=== PATIENT | male | born 1945 | race Caucasian/White ===

== ENCOUNTER 2021-01-04 20:51 | Emergency (ER) | payer OTHER, SELFPAY ==
--- NOTE | ~2021-01-04 | XR_ITS ---
EXAMINATION: XR SOFT TISSUE NECK CLINICAL INDICATION: Food stock in the throat. COMPARISON: None TECHNIQUE: 2 views of the soft tissue neck were obtained. FINDINGS: The airway is widely patent. No soft tissue foreign body seen. There is moderate degenerative left C4-C5 facet joint arthropathy. The prevertebral soft tissues are normal. XR/XR soft tissue neck IMPRESSION: Repeat foreign body seen in the soft tissues of the neck..
[2021-01-04 21:02] VITALS: BP 196/87; PULSE 98; RESP 16; TEMP 36.5; O2SAT 98; BMI 32.3
[2021-01-04 21:49] VITALS: BP 156/82; PULSE 74; RESP 16; TEMP 36.6; O2SAT 98
--- NOTE | 2021-01-04 21:57 | ED.GENADULT ---
HPI - General Adult General Chief complaint: General Medical <Marta Daugherty NP - Last Filed: 01/05/21 00:33> Stated complaint: Trouble Swallowing <Marta Daugherty NP - Last Filed: 01/05/21 00:33> Time Seen by Provider: 01/04/21 21:43 <Marta Daugherty NP - Last Filed: 01/05/21 00:33> Source: patient <Marta Daugherty NP - Last Filed: 01/05/21 00:33> Mode of arrival: ambulatory <Marta Daugherty NP - Last Filed: 01/05/21 00:33> Limitations: no limitations <LOTTIE Oshea Last Filed: 01/05/21 00:33> History of Present Illness HPI narrative: 75-year-old male with a past medical history of esophageal stricture with food impaction in 2006 here with complaints of feeling like a piece of chicken is stuck in inability to swallow water since. Patient tells me that he ate some chicken about 3 hours ago and since then he has been unable to drink fluids. He tells me that he has no medical problems but has not seen a doctor in more than 10 years. He does smoke cigarettes daily and drinks alcohol daily. <LOTTIE Oshea Last Filed: 01/05/21 00:33> Related Data Allergies/adverse reactions: Allergies Allergy/AdvReac Type Severity Reaction Status Date / Time No Known Allergies Allergy Unverified 12/31/19 15:05 [No Known Allergies*] <Marta Daugherty NP - Last Filed: 01/05/21 00:33> Review of Systems Review of Systems: Yes all other systems are reviewed and are negative <LOTTIE Oshea Last Filed: 01/05/21 00:33> Constitutional: Constitutional: Reports no additional constitutional complaints, Denies body ache(s), Denies chills, Denies fever(s), Denies headache(s) and Denies weakness <LOTTIE Oshea Last Filed: 01/05/21 00:33> Eyes: Eyes: Reports no additional eye complaints and Denies change in vision <Marta Daugherty NP - Last Filed: 01/05/21 00:33> ENT: Reports system reviewed and no additional complaints, except as documented, Reports dysphagia, Denies dizziness, Denies headache(s), Denies nasal congestion, Denies nasal discharge and Denies neck pain <Marta Daugherty NP - Last Filed: 01/05/21 00:33> Cardiovascular: Cardiovascular: Reports no additional cardiovascular complaints, Denies chest pain, Denies leg edema and Denies dyspnea <Marta Daugherty NP - Last Filed: 01/05/21 00:33> Respiratory: Respiratory: Reports no additional respiratory complaints, Denies cough and Denies dyspnea <Marta Daugherty NP - Last Filed: 01/05/21 00:33> Gastrointestinal: Gastrointestinal: Reports no additional gastrointestinal complaints, Denies abdominal pain, Reports dysphagia, Denies diarrhea, Denies nausea and Denies vomiting <Marta Daugherty NP - Last Filed: 01/05/21 00:33> Genitourinary: Genitourinary: Denies urinary incontinence <Marta Daugherty NP - Last Filed: 01/05/21 00:33> Musculoskeletal: Musculoskeletal: Reports no additional musculoskeletal complaints, Denies back pain, Denies arthralgias, Denies joint swelling, Denies neck pain, Denies numbness and Denies tingling <Marta Daugherty NP - Last Filed: 01/05/21 00:33> Integumentary/Breasts: Skin/Breast: Reports system reviewed and no additional complaints, except as docu and Denies rash <Marta Daugherty NP - Last Filed: 01/05/21 00:33> Neurologic: Reports system reviewed and no additional complaints, except as documented, Denies Abnormal speech present, Denies dizziness, Denies headache(s), Denies numbness, Denies tingling and Denies weakness <Marta Daugherty NP - Last Filed: 01/05/21 00:33> PMF Past Medical History Attestation statement: The following information was validated with the patient. <LOTTIE Oshea Last Filed: 01/05/21 00:33> Source: old records reviewed and nursing notes reviewed <Marta Daugherty NP - Last Filed: 01/05/21 00:33> Social History Social History: Social History Alcohol intake: unknown Patient Tobacco Use Status: Tobacco use Unknown Use of substances other than those prescribed or required for medical reasons: Unknown Advance Directives: No Advance Directives Information Provided: Yes <Marta Daugherty NP - Last Filed: 01/05/21 00:33> Physical Exam Vital Signs: Vital Signs: Last Vital Signs Temp 97.8 F 01/04/21 21:49 Pulse 74 01/04/21 21:49 Resp 16 01/04/21 21:49 BP 156/82 H 01/04/21 21:49 Pulse Ox 98 01/04/21 21:49 Body Mass Index 32.3 <Marta Daugherty NP - Last Filed: 01/05/21 00:33> Vital Signs: Last Vital Signs Temp 97.8 F 01/04/21 21:49 Pulse 74 01/04/21 21:49 Resp 16 01/04/21 21:49 BP 156/82 H 01/04/21 21:49 Pulse Ox 98 01/04/21 21:49 Body Mass Index 32.3 <Feng Sharma MD - Last Filed: 01/04/21 22:05> Const: General: cooperative, healthy appearing, comfortable and no acute distress <Marta Daugherty NP - Last Filed: 01/05/21 00:33> Orientation/consciousness: patient oriented x3 <Marta Daugherty NP - Last Filed: 01/05/21 00:33> Limitations: no limitations <Marta Daugherty NP - Last Filed: 01/05/21 00:33> HENMT: Head: Yes normal to inspection <Marta Daugherty NP - Last Filed: 01/05/21 00:33> Ears: hearing grossly normal bilaterally <Marta Daugherty NP - Last Filed: 01/05/21 00:33> General nose exam: Normal external nose present <Marta Daugherty NP - Last Filed: 01/05/21 00:33> Face and sinus: Yes normal facial exam <Marta Daugherty NP - Last Filed: 01/05/21 00:33> Mouth: Normal oral and palatal mucosa present <Marta Daugherty NP - Last Filed: 01/05/21 00:33> Throat: Yes posterior oropharynx normal <Marta Daugherty NP - Last Filed: 01/05/21 00:33> Eyes: General: appearance normal, both eyes and all related structures <Marta Daugherty NP - Last Filed: 01/05/21 00:33> Pupils: Equal, round and reactive pupils present <Marta Daugherty NP - Last Filed: 01/05/21 00:33> Neck: Neck: Yes normal visual inspection <Marta Daugherty NP - Last Filed: 01/05/21 00:33> Chest: Chest palpation & inspection: normal inspection of the chest <LOTTIE Oshea Last Filed: 01/05/21 00:33> Resp: Effort & Inspection: normal respiratory effort <Marta Daugherty NP - Last Filed: 01/05/21 00:33> Auscultation: clear to auscultation bilaterally <Marta Daugherty NP - Last Filed: 01/05/21 00:33> Cardio: Rate: regular rate <Marta Daugherty NP - Last Filed: 01/05/21 00:33> Rhythm: regular rhythm <Marta Daugherty NP - Last Filed: 01/05/21 00:33> Peripheral pulses: Peripheral pulses 2+ throughout <Marta Daugherty NP - Last Filed: 01/05/21 00:33> GI: Inspection: Yes normal to inspection <LOTTIE Oshea Last Filed: 01/05/21 00:33> Palpation (GI): Soft to palpation and nontender <Marta Daugherty NP - Last Filed: 01/05/21 00:33> Auscultation: normal bowel sounds <Marta Daugherty NP - Last Filed: 01/05/21 00:33> Back/Spine/Pelvis: Thoracic/Lumbar Spine: thoracic and lumbar spine normal to inspection <Marta Daugherty NP - Last Filed: 01/05/21 00:33> Skin: General skin exam: no rashes or lesions noted <Marta Daugherty NP - Last Filed: 01/05/21 00:33> Neuro: General: patient oriented x3, no focal motor deficits and normal sensation to monofilament <Marta Daugheryt NP - Last Filed: 01/05/21 00:33> Cranial nerves: Yes Equal, round and reactive pupils present <Marta Daugherty NP - Last Filed: 01/05/21 00:33> Cognition (Neuro): normal cognition <Marta Daugherty NP - Last Filed: 01/05/21 00:33> Speech: No Abnormal speech present <Marta Daugherty NP - Last Filed: 01/05/21 00:33> Gait exam (Neuro): Normal gait present <Marta Daugherty NP - Last Filed: 01/05/21 00:33> Motor exam (neuro): 5/5 motor strength present throughout <Marta Daugherty NP - Last Filed: 01/05/21 00:33> Extrem: General: Yes normal to inspection <Marta Daugherty NP - Last Filed: 01/05/21 00:33> Course Course Course Narrative: 75-year-old male with a past medical history of esophageal strictures with food impaction here with complaints of feeling like a piece of chicken is stuck in his throat and inability to swallow water. History of same. At the bedside patient was given 2 cups of water and immediately spit them out of his mouth Will check labs and give 1 dose of IV glucagon reassess 2340-no relief after 1st dose of IV glucagon. Will attempt 2nd dose. Likely will need GI involvement for endoscopy 0015-no luck after 2nd dose of glucagon. Will reach out to GI 0030-Spoke to Dr Esteban. He will come in for upper endoscopy. <Marta Daugherty NP - Last Filed: 01/05/21 00:33> Reevaluation(s) Reevaluation #1: I have discussed the case and management with the JAUN. Will try glucagon times two. Most likely will need scope because of esophageal stricture <Feng Sharma MD - Last Filed: 01/04/21 22:05> Time: 22:05 <Feng Sharma MD - Last Filed: 01/04/21 22:05> Medical Decision Making Lab Data Result diagrams: : 01/04/21 10:33 01/04/21 10:33 <Marta Daugherty NP - Last Filed: 01/05/21 00:33> Labs: Lab Results 01/04/21 01/04/21 Range/Units 10:33 10:33 WBC 5.4 (4.8-10.8) X10*3/uL RBC 4.34 L (4.60-5.80) X10*6/uL Hgb 14.3 (14.0-18.0) g/dl Hct 41.8 L (42-52) % MCV 96.3 (80-98) fL MCH 32.9 (27.0-33.0) pg MCHC 34.2 (31.0-36.0) g/dl RDW 12.9 (11.0-16.0) % Plt Count 143 L (160-400) X10*3/uL MPV 9.5 (9.4-12.4) fL Immature Gran % (Auto) 0.4 (0.0-0.4) % Neut % (Auto) 64.4 (45-73) % Lymph % (Auto) 21.6 (20-40) % [place] % (Auto) 9.2 (2-11) % Eos % (Auto) 3.7 (0-4) % Baso % (Auto) 0.7 (0-2) % Lymph # (Auto) 1.2 (1.2-4.9) X10*3/uL [place] # (Auto) 0.5 (0.1-1.2) X10*3/uL Eos # (Auto) 0.2 (0.0-0.4) X10*3/uL Baso # (Auto) 0.0 (0.0-0.2) X10*3/uL Abs Immat Gran (auto) 0.02 (0.00-0.03) X10*3/uL Absolute Neuts (auto) 3.5 (2.0-8.3) X10*3/uL Absolute Nucleated RBC 0.000 (0.0-0.012) X10*3/uL Nucleated RBC % (auto) 0.0 (0.0-0.2) /100WBC Sodium 138 (135-145) mmol/L Potassium 4.8 (3.3-5.1) mmol/L Chloride 101 (96-108) mmol/L Carbon Dioxide 24 (22-29) mmol/L Anion Gap 18 (12-20) BUN 6 L (9-16) mg/dL Creatinine 0.72 (0.5-1.4) mg/dL Estim Creat Clear Calc 102.8 Estimated GFR > 60 Random Glucose 89 (60-115) mg/dL Calcium 9.2 (8.4-10.2) mg/dL <Marta Daugherty NP - Last Filed: 01/05/21 00:33> Lab Results 01/04/21 01/04/21 Range/Units 10:33 10:33 WBC 5.4 (4.8-10.8) X10*3/uL RBC 4.34 L (4.60-5.80) X10*6/uL Hgb 14.3 (14.0-18.0) g/dl Hct 41.8 L (42-52) % MCV 96.3 (80-98) fL MCH 32.9 (27.0-33.0) pg MCHC 34.2 (31.0-36.0) g/dl RDW 12.9 (11.0-16.0) % Plt Count 143 L (160-400) X10*3/uL MPV 9.5 (9.4-12.4) fL Immature Gran % (Auto) 0.4 (0.0-0.4) % Neut % (Auto) 64.4 (45-73) % Lymph % (Auto) 21.6 (20-40) % [place] % (Auto) 9.2 (2-11) % Eos % (Auto) 3.7 (0-4) % Baso % (Auto) 0.7 (0-2) % Lymph # (Auto) 1.2 (1.2-4.9) X10*3/uL [place] # (Auto) 0.5 (0.1-1.2) X10*3/uL Eos # (Auto) 0.2 (0.0-0.4) X10*3/uL Baso # (Auto) 0.0 (0.0-0.2) X10*3/uL Abs Immat Gran (auto) 0.02 (0.00-0.03) X10*3/uL Absolute Neuts (auto) 3.5 (2.0-8.3) X10*3/uL Absolute Nucleated RBC 0.000 (0.0-0.012) X10*3/uL Nucleated RBC % (auto) 0.0 (0.0-0.2) /100WBC Sodium 138 (135-145) mmol/L Potassium 4.8 (3.3-5.1) mmol/L Chloride 101 (96-108) mmol/L Carbon Dioxide 24 (22-29) mmol/L Anion Gap 18 (12-20) BUN 6 L (9-16) mg/dL Creatinine 0.72 (0.5-1.4) mg/dL Estim Creat Clear Calc 102.8 Estimated GFR > 60 Random Glucose 89 (60-115) mg/dL Calcium 9.2 (8.4-10.2) mg/dL <Feng Sharma MD - Last Filed: 01/04/21 22:05> Discharge Plan Discharge Clinical Impression: Esophageal obstruction due to food impaction <Marta Daugherty NP - Last Filed: 01/05/21 00:33>
[2021-01-04 22:38] LABS: Basophils Percent Auto 0.7 % (0-2); Eosinophils Absolute Auto 0.2 X10*3/uL (0.0-0.4); Eosinophils Percent Auto 3.7 % (0-4); Hematocrit 41.8 % (42-52); Hemoglobin 14.3 g/dl (14.0-18.0); Imm Gran Abs Auto 0.02 X10*3/uL (0.00-0.03); Imm Gran Pct Auto 0.4 % (0.0-0.4); Lymphocytes Absolute Auto 1.2 X10*3/uL (1.2-4.9); Lymphocytes Percent Auto 21.6 % (20-40); MANUAL DIFF FLAG NO; Mean Corpuscular HGB Conc 34.2 g/dl (31.0-36.0); Mean Corpuscular Hemoglobin 32.9 pg (27.0-33.0); Mean Corpuscular Volume 96.3 fL (80-98); Mean Platelet Volume 9.5 fL (9.4-12.4); Monocytes Absolute Auto 0.5 X10*3/uL (0.1-1.2); Monocytes Percent Auto 9.2 % (2-11); Neutrophils Absolute Auto 3.5 X10*3/uL (2.0-8.3); Neutrophils Percent Auto 64.4 % (45-73); Platelet Count 143 X10*3/uL (160-400); Red Blood Count 4.34 X10*6/uL (4.60-5.80); Red Cell Distribution Width 12.9 % (11.0-16.0); White Blood Count 5.4 X10*3/uL (4.8-10.8)
[2021-01-04 22:51] LABS: Anion Gap 18 (12-20); Blood Urea Nitrogen 6 mg/dL (9-16); Calcium 9.2 mg/dL (8.4-10.2); Carbon Dioxide 24 mmol/L (22-29); Chloride 101 mmol/L (96-108); Creatinine Clr Calc Pharmacy 102.8; Estimated Glomerular Filt Rate > 60; Glucose Random 89 mg/dL (60-115); Potassium 4.8 mmol/L (3.3-5.1); Sodium 138 mmol/L (135-145)
--- NOTE | 2021-01-05 06:09 | OP_ITS ---
SURGEON: Noel Esteban MD INDICATIONS: Foreign body in the esophagus. PREOPERATIVE DIAGNOSIS: POSTOPERATIVE DIAGNOSIS: PROCEDURE PERFORMED: Upper endoscopy with removal of foreign body. ESTIMATED BLOOD LOSS: COMPLICATIONS: ANESTHESIA: Medications, monitored anesthesia care. ASSISTANTS: SPECIMENS: DESCRIPTION OF PROCEDURE: History and physical performed. The risks and benefits of the procedure were explained to the patient. Informed consent was obtained. The patient was placed in the left lateral decubitus position. The Olympus video gastroscope was introduced into the esophagus, stomach, and duodenum. Examination was performed. The scope was removed. He tolerated the procedure well, and was taken to the Recovery in stable condition. FINDINGS: Esophagus: There was a large amount of retained oral secretions in the esophagus. This was suctioned. At the EG junction, was a large piece of meat, which was pushed gently through into the stomach. There was nonobstructive Schatzki ring with a slight amount of heme present after the foreign body was removed. Stomach: The stomach was normal. Duodenum: The bulb and second portion were normal. IMPRESSION: 1. Schatzki ring. 2. Esophageal foreign body, cleared. RECOMMENDATIONS: 1. Follow up as needed. 2. Consider repeat endoscopy in 8 to 12 weeks for dilation of Schatzki ring. MD CATHERINE Billings/AGUSTINAL / [id number]
--- NOTE | 2021-01-05 15:20 | CONS_ITS ---
DATE OF SERVICE: 01/05/2021 REFERRING PHYSICIAN: Marta Daugherty NP REASON FOR CONSULTATION: Esophageal obstruction. HISTORY OF PRESENT ILLNESS: The patient is a pleasant 75-year-old man, who presented to the emergency room earlier today after eating chicken, which became impacted in his esophagus. He has 1 prior episode of similar presentation requiring endoscopy many years ago. He denies chronic reflux symptoms. He has not had progressive dysphagia and denies a prior history of peptic ulcer disease. PAST MEDICAL HISTORY: Esophageal obstruction. He denies other medical or surgical illnesses and has not seen a doctor for many years. CURRENT MEDICATIONS: None. ALLERGIES: THERE ARE NONE REPORTED. FAMILY HISTORY: This is reviewed with the patient and is noncontributory. SOCIAL HISTORY: He does smoke and drinks alcohol on a daily basis. REVIEW OF SYSTEMS: SKIN: No pruritus. HEENT: Negative. CARDIOPULMONARY: No shortness of breath or chest pain. GASTROINTESTINAL: As above. GENITOURINARY: Negative. NEUROPSYCHIATRIC: Negative. PHYSICAL EXAMINATION: GENERAL: Shows a pleasant male, in no acute distress. VITAL SIGNS: Reviewed in the electronic medical record and are stable. SKIN: Anicteric. HEENT: Shows no scleral icterus. NECK: Without lymphadenopathy or thyromegaly. LUNGS: Clear. HEART: Shows regular rate and rhythm. S1, S2. No murmur. ABDOMEN: Soft without focal masses or tenderness. Bowel sounds are present. No organomegaly is noted. EXTREMITIES: Without edema. IMPRESSION: Esophageal obstruction. PLAN: Upper endoscopy. Risks and benefits of the procedure have been discussed with the patient, who understands and agrees to proceed. MD CATHERINE Billings/DAMIÁN / [id number]
== END 2021-01-05 01:20 ==
PROVIDERS: Internal Medicine Gastroenterology; Nurse Practitioner Family; Emergency Provider Emergency Medicine
PROC: 0DJ08ZZ Inspection of Upper Intestinal Tract, Via Natural or Artificial Opening Endoscopic (ICD-10-PCS; CPT 43235; principal; 2021-01-05 01:20)
DX: K22.2 Esophageal obstruction (principal); T18.128A Food in esophagus causing other injury, initial encounter; X58.XXXA Exposure to other specified factors, initial encounter; Y93.9 Activity, unspecified; Y92.9 Unspecified place or not applicable; Y99.9 Unspecified external cause status
CPT/HCPCS: 43247; 36415; 70360; 80048; 85025; 96374; 96376; 99283; 99285; J1610; J3010

== ENCOUNTER 2024-05-22 09:42 | Emergency (ER) | payer OTHER, SELFPAY ==
--- NOTE | ~2024-05-22 | XR_ITS ---
EXAMINATION: XR HIP 1 VIEW LEFT WITH PELVIS HISTORY: fall COMPARISON: There are no prior studies for comparison. FINDINGS: A single AP view of the pelvis and two views of the left hip are submitted. The bones are osteopenic. There are minimally displaced fractures of the left superior and inferior pubic rami. No additional fracture is seen. 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 There is degenerative disc disease of the spine. The soft tissues are unremarkable. XR/XR hip LT w PEL1V IMPRESSION: Osteopenia. Minimally displaced fractures of the left superior and inferior pubic rami. Electronically signed by: Carlos Prasad MD 05/22/2024 11:15 AM [facility]
[2024-05-22 09:56] VITALS: BP 129/63; PULSE 100; RESP 19; TEMP 36.6; O2SAT 98; BMI 31.6
[2024-05-22 13:36] LABS: MANUAL DIFF FLAG NO
[2024-05-22 13:40] LABS: Basophils Percent Auto 0.5 % (0-2); Eosinophils Absolute Auto 0.1 X10*3/uL (0.0-0.4); Eosinophils Percent Auto 1.2 % (0-4); Hematocrit 34.8 % (42.0-52.0); Hemoglobin 11.6 g/dl (14.0-18.0); Imm Gran Abs Auto 0.03 X10*3/uL (0.00-0.03); Imm Gran Pct Auto 0.5 % (0.0-0.4); Lymphocytes Absolute Auto 0.8 X10*3/uL (1.2-4.9); Lymphocytes Percent Auto 13.1 % (20-40); Mean Corpuscular HGB Conc 33.3 g/dl (31.0-36.0); Mean Corpuscular Hemoglobin 32.6 pg (27.0-33.0); Mean Corpuscular Volume 97.8 fL (80.0-98.0); Mean Platelet Volume 8.6 fL (9.4-12.4); Monocytes Absolute Auto 0.7 X10*3/uL (0.1-1.2); Monocytes Percent Auto 10.1 % (2-11); Neutrophils Absolute Auto 4.8 x10*3/uL (2.0-8.3); Neutrophils Percent Auto 74.6 % (45-73); Platelet Count 188 X10*3/uL (160-400); Red Blood Count 3.56 X10*6/uL (4.60-5.80); Red Cell Distribution Width 12.7 % (11.0-16.0); White Blood Count 6.4 X10*3/uL (4.8-10.8)
[2024-05-22 13:53] LABS: Anion Gap 13 (12-20); Blood Urea Nitrogen 17 mg/dL (9-16); Calcium 9.5 mg/dL (8.4-10.2); Carbon Dioxide 27 mmol/L (22-29); Chloride 104 mmol/L (96-108); Creatinine Clr Calc Pharmacy 101.2; Estimated Glomerular Filt Rate > 60; Glucose Random 92 mg/dL (60-115); Potassium 4.3 mmol/L (3.3-5.1); Sodium 140 mmol/L (135-145)
[2024-05-22 14:19] LABS: Influenza A PCR NEGATIVE (Negative); Influenza B PCR NEGATIVE (Negative); Resp Syncy Virus RNA Qual PCR NEGATIVE (Negative); SARS COV2 PCR INHOUSE NEGATIVE (Negative)
[2024-05-22 16:19] VITALS: BP 178/85; PULSE 77; RESP 19; TEMP 36.6; O2SAT 98
[2024-05-22 19:27] VITALS: BP 176/77; PULSE 71; RESP 16; TEMP 36.7; O2SAT 100
--- NOTE | 2024-05-22 20:22 | ED_ITS ---
HPI - Fall General Chief Complaint: Extremity Injury, Lower Stated Complaint: L Hip Pain Fall 1Week Ago Time Seen by Provider: 05/22/24 18:34 Source: patient Limitations: no limitations History of Present Illness ED Provider: Thao Del Valle PA-C HPI Narrative: 78-year-old male presents after a fall that occurred a week ago. Patient states he tripped and fell 1 week ago, there was no head strike, there was no loss of consciousness. The patient has been ambulatory. Over the past week, the patient has developed progressive left hip pain, he now can not tolerate any weight-bearing activity. Related Data Allergies Allergy/AdvReac Type Severity Reaction Status Date / Time No Known Allergies Allergy Verified 05/22/24 09:58 [No Known Allergies*] Review of Systems 2 Review of Systems: Yes all other systems are reviewed and are negative Constitutional: Constitutional: Denies fatigue, Denies fever(s) and Denies headache(s) ENT: Denies dizziness and Denies headache(s) Cardiovascular: Cardiovascular: Denies chest pain and Denies dyspnea Respiratory: Respiratory: Denies cough and Denies dyspnea Gastrointestinal: Gastrointestinal: Denies abdominal pain, Denies nausea and Denies vomiting Musculoskeletal: Musculoskeletal: Reports arthralgias and Denies joint swelling Neurologic: Denies dizziness and Denies headache(s) Endocrine: Endocrine: Denies fatigue PMFSH Past Medical History Attestation statement: The following information was validated with the patient. Social History Social History Alcohol intake: unknown Patient Tobacco Use Status: Tobacco use Unknown Advance Directives: No Advance Directives Information Provided: Yes Do you have a plan to hurt others: No Plan Physical Exam 2 Vital Signs: Vital Signs: Last Vital Signs Temp 98.0 F 05/22/24 19:27 Pulse 71 05/22/24 19:27 Resp 16 05/22/24 19:27 BP 176/77 H 05/22/24 19:27 Pulse Ox 100 05/22/24 19:27 O2 Del Method Room Air 05/22/24 19:27 BMI result Body Mass Index 31.6 Const: Other: Alert, well-appearing Orientation/consciousness: patient oriented x3 Resp: Other: Nonlabored respirations Effort & Inspection: normal respiratory effort Cardio: Other: Normal peripheral perfusion Skin: Other: Warm dry no rash Neuro: Other: Did not ambulate the patient he is in a wheelchair, he was initially seen from triage General: patient oriented x3, no focal motor deficits and CN's II-XI intact bilaterally Psych: Other: Cooperative Medical Decision Making Medical Decision Making [facility] Narrative: 78-year-old male presents after a fall that occurred a week ago. Patient states he tripped and fell 1 week ago, there was no head strike, there was no loss of consciousness. The patient has been ambulatory. Over the past week, the patient has developed progressive left hip pain, he now can not tolerate any weight-bearing activity. Problem: Age History: Per patient I have considered the following differential diagnoses: Fracture, dislocation, contusion Plan: X-rays ordered from triage, the patient has a pubic ramus fracture. Given he is unable to bear weight, he will stay for physical therapy and case management. We will add screening labs. The patient is at bedside, they are in agreement. I have independently reviewed the following tests: Labs: No leukocytosis, not anemic, no electrolyte abnormality noted X-ray hip pelvis: XR/XR hip LT w PEL1V IMPRESSION: Osteopenia. Minimally displaced fractures of the left superior and inferior pubic rami. Electronically signed by: Carlos Prasad MD 05/22/2024 11:15 AM [facility] Lab Data 05/22/24 13:29 05/22/24 13:29 Labs: Lab Results 05/22/24 05/22/24 Range/Units 13:25 13:29 WBC 6.4 (4.8-10.8) X10*3/uL RBC 3.56 L (4.60-5.80) X10*6/uL Hgb 11.6 L (14.0-18.0) g/dl Hct 34.8 L (42.0-52.0) % MCV 97.8 (80.0-98.0) fL MCH 32.6 (27.0-33.0) pg MCHC 33.3 (31.0-36.0) g/dl RDW 12.7 (11.0-16.0) % Plt Count 188 (160-400) X10*3/uL MPV 8.6 L (9.4-12.4) fL Immature Gran % (Auto) 0.5 H (0.0-0.4) % Neut % (Auto) 74.6 H (45-73) % Lymph % (Auto) 13.1 L (20-40) % [place] % (Auto) 10.1 (2-11) % Eos % (Auto) 1.2 (0-4) % Baso % (Auto) 0.5 (0-2) % Lymph # (Auto) 0.8 L (1.2-4.9) X10*3/uL [place] # (Auto) 0.7 (0.1-1.2) X10*3/uL Eos # (Auto) 0.1 (0.0-0.4) X10*3/uL Baso # (Auto) 0.0 (0.0-0.2) X10*3/uL Abs Immat Gran (auto) 0.03 (0.00-0.03) X10*3/uL Absolute Neuts (auto) 4.8 (2.0-8.3) x10*3/uL Absolute Nucleated RBC 0.000 (0.0-0.012) X10*3/uL Nucleated RBC % (auto) 0.0 (0.0-0.2) /100WBC Sodium 140 (135-145) mmol/L Potassium 4.3 (3.3-5.1) mmol/L Chloride 104 (96-108) mmol/L Carbon Dioxide 27 (22-29) mmol/L Anion Gap 13 (12-20) BUN 17 H (9-16) mg/dL Creatinine 0.69 (0.5-1.4) mg/dL Estim Creat Clear Calc 101.2 Estimated GFR > 60 Random Glucose 92 (60-115) mg/dL Calcium 9.5 (8.4-10.2) mg/dL Influenza Type A (PCR) NEGATIVE (Negative) Influenza Type B (PCR) NEGATIVE (Negative) RSV RNA Qual (PCR) NEGATIVE (Negative) SARS-CoV-2 RNA (RT-PCR) NEGATIVE (Negative) Discharge Plan Discharge Clinical Impression: Closed fracture of left inferior pubic ramus Patient Disposition: Still a Patient Print Language: Faroese
--- NOTE | 2024-05-22 22:33 | MHC.CM.ED ---
CM met with patient at the request of Carmina GOMEZ. Patient fell a week ago. Ambulation increasingly became more painful. Now cannot bear weight. Pt has minimally displaced L superior and inferior pubic rami fractures. He is an [employer] of [facility]. Was in [place]. 4 years of service. Does not use any VA services. 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 Lives alone. Has supports from ex-, Hien ([phone]) and his daughter Maria Teresa ([phone]). Pt uses a cane. Has a walker. Drives. Is very independent. Has no home services. Declines to complete a HCP at this time. Pt would like acute rehab. Is a good candidate. [facility] if first choice. Referrals will be made. PT is pending for the morning. CM will follow for discharge planning.
[2024-05-22 23:46] VITALS: BP 148/70; PULSE 77; RESP 20; TEMP 36.8; O2SAT 98
[2024-05-23] VITALS (10 sets, daily range): BP systolic 133–185; BP diastolic 61–89; PULSE 67–84; RESP 12–20; TEMP 36.6–37.1; O2SAT 94–99
--- NOTE | 2024-05-23 10:18 | PHA.MEDREC ---
Addendum entered by Emery Crespo RPh 05/23/24 14:39: Med rec was reviewed by Luc. Original Note: Pharmacy Consult ? Medication Reconciliation Pharmacy has completed the medication reconciliation.
--- NOTE | 2024-05-23 21:24 | MHC.EDTECH ---
pt ambulated to and from bathroom with use of walker and this tech by his side for assistance with a steady gait throughout
[2024-05-24 01:19] VITALS: BP 146/75; PULSE 71; RESP 16; TEMP 36.8; O2SAT 98
--- NOTE | 2024-05-24 03:44 | PC.NURSE ---
A/O x4. states no medical hx--takes no meds at home. only reporting ortho procedures. uses urinal at bedside independently. respirations nonlabred. waiting for case management.
--- NOTE | 2024-05-24 10:51 | MHC.CM.PN ---
SNF REFERRAL PLACED 2/3 ACUTE REHABS DO NOT THINK [facility] WILL GIVE AUTH FOR [facility], CM FOLLOWING FOR BED OFFER.
[2024-05-24 15:17] VITALS: BP 130/58; PULSE 78; RESP 16; TEMP 36.9; O2SAT 98
--- NOTE | 2024-05-25 01:38 | PC.NURSE ---
sleeping comfortably-- no distress. to be transferred to rehab facility in AM, pt aware of plan.
[2024-05-25 01:46] VITALS: BP 123/75; PULSE 74; RESP 18; O2SAT 97
--- NOTE | 2024-05-25 09:07 | MHC.CM.ED ---
Addendum entered by Ashlee Aranda 05/25/24 10:03: [facility], [facility], [facility], [facility], [facility], [facility] and [facility] are willing to offer a bed. Met with patient to discuss d/c options. Patient is declining STR at this time. Feels he can safely return home. Declining VNA. Patient's ex- will transport patient home at 11am. Patient, Lucrecia AGUILERA and Ashley GOMEZ aware. Original Note: Patient remains in ER. [facility] therapy eval completed. Rehab is recommended. [facility] was patient's 1st choice. No acute rehab beds offered because they do not feel [facility] would provide insurance auth. SNF referral broadcasted within 15 miles of patient's home to all facilities that are contracted with [facility]. Continue to monitor for d/c needs.
[2024-05-25 10:42] VITALS: BP 123/75; PULSE 74; RESP 18; TEMP 36.6; O2SAT 97
[2024-05-25 10:51] VITALS: BP 123/75; PULSE 74; RESP 18; TEMP 36.6; O2SAT 97
--- NOTE | 2024-05-25 10:51 | PC.NURSE ---
Pt declining short term rehab at this time; MD and case mgt aware; pt given RX for a walker for home; pt endorses that he feels safe being DC'd
== END 2024-05-25 11:15 | disposition home or self-care (01) ==
PROVIDERS: Physician Assistant Medical; Emergency Provider Emergency Medicine; PCP Physician Assistant Medical
DX: S32.592A Other specified fracture of left pubis, initial encounter for closed fracture (principal); M25.552 Pain in left hip; R26.2 Difficulty in walking, not elsewhere classified; R10.2 Pelvic and perineal pain; W19.XXXA Unspecified fall, initial encounter; Y93.9 Activity, unspecified; Y92.9 Unspecified place or not applicable; Y99.8 Other external cause status; Z03.818 Encounter for observation for suspected exposure to other biological agents ruled out
CPT/HCPCS: 0241U; 73502; 80048; 85025; 97161; 99284

== ENCOUNTER → 2024-05-22 11:00 | Outpatient (BNV) | payer OTHER, SELFPAY | PROVIDERS: PCP Physician Assistant Medical; Visit Provider Radiology Diagnostic Radiology | DX: M25.552 Pain in left hip (principal) | CPT/HCPCS: 73502 ==

== ENCOUNTER 2025-02-19 08:50 | Emergency (ER) | payer OTHER, SELFPAY ==
[2025-02-19 09:04] VITALS: BP 175/88; PULSE 93; RESP 18; TEMP 36.4; O2SAT 99; BMI 31.6
--- NOTE | 2025-02-19 09:53 | PC.NURSE ---
Pt c/o difficulty swallowing last pm. States he couldn't manage saliva during the night however symptoms resolved at this time. Pt with hx of same, esophageal stretching x2. Maintaining airway. NAD. Lungs sound clear bilat.
[2025-02-19 11:36] VITALS: BP 152/85; PULSE 86; RESP 18; TEMP 36.6; O2SAT 99
--- NOTE | 2025-02-19 11:39 | ED_ITS ---
HPI - General Adult General Chief complaint: General Medical Stated complaint: diff swallowing Time Seen by Provider: 02/19/25 11:23 Source: patient Mode of arrival: ambulatory Limitations: no limitations History of Present Illness ED Provider: Zaire Ledesma HPI narrative: 79-year-old male history of esophageal food obstruction presents to ED for for beef being stuck in her throat. Patient is unable to swallow saliva. Patient was hacking. Patient came to the ED for evaluation. Patient denies any chest pain or shortness of breath. Patient states he had eaten a brisket Related Data Previous Rx's ?Medication ?Instructions ?Recorded oxycodone 5 mg tablet 5 mg PO Q8H PRN pain (scale score 05/25/24 7-10) #9 tabs walker #1 ea 05/25/24 Allergies Allergy/AdvReac Type Severity Reaction Status Date / Time No Known Allergies (No Known Allergy Verified 02/19/25 09:07 Allergies*) Review of Systems Review of Systems: Beef stuck in throat choking hacking. Yes all other systems are reviewed and are negative [facility] Social History Social History Alcohol intake: unknown Patient Tobacco Use Status: Tobacco use Unknown Advance Directives: No Advance Directives Information Provided: Yes Physical Exam ED Vital Signs: Vital Signs - 24 hr 02/19/25 09:04 02/19/25 11:36 Temperature 97.6 F 97.9 F Pulse Rate 93 86 Respiratory Rate 18 18 Blood Pressure 175/88 H 152/85 H Pulse Oximetry 99 99 Oxygen Delivery Method Room Air Room Air BMI result Body Mass Index 31.6 Const General: cooperative, healthy appearing, comfortable and no acute distress Orientation/consciousness: patient oriented x3 HENMT Head: Yes normal to inspection, Yes No palpable skull fracture present, Yes normocephalic and Yes atraumatic Throat: Yes posterior oropharynx normal, Yes tonsils normal and Yes uvula midline Eyes General: appearance normal, both eyes and all related structures Neck Neck: Yes normal visual inspection, Yes full ROM, Yes no lymphadenopathy, Yes no meningeal signs, Yes trachea midline, Yes supple, No anterior neck swelling and No tender Chest Chest palpation & inspection: normal inspection of the chest and normal palpation of entire chest wall Resp Effort & Inspection: normal respiratory effort and able to speak in complete sentences Auscultation: clear to auscultation bilaterally Cardio Jugular venous distension: no JVD Heart sounds: S1 normal heart sound present and S2 normal heart sound present GI Inspection: Yes normal to inspection Palpation (GI): Soft to palpation, not firm, nontender, no guarding and not rigid General: Yes no CVA tenderness Back/Spine/Pelvis Back: no CVA tenderness and No back tenderness Skin General skin exam: no rashes or lesions noted, elasticity normal and turgor normal Neuro General: patient oriented x3, gait normal, tone normal, moves all extremities, Normal light touch and pain sensation, no meningeal signs, no focal motor deficits, CN's II-XI intact bilaterally and normal sensation to monofilament Extrem General: Yes normal to inspection, Yes full ROM and Yes capillary refill normal Psych Appearance: grossly normal, well kempt and not disheveled Medical Decision Making Medical Decision Making MDM Narrative: 79-year-old male presents to the ED for for beef being stuck in his throat. Patient states he could not swallow liquid and has been hacking trying to get beef all of his throat and swallowed. By the time I came to evaluate patient patient states he feels better patient states he is able to swallow and no longer feels beef in his throat. Patient would like to be discharged. Patient presently is not drooling or having any change in voice. Patient denies any vomiting chest pain or shortness of breath. Patient denies any abdominal pain. Patient drank a whole cup of water in front of me without any vomiting. It was discussed with patient due to age probably would benefit from a cardiac evaluation just to make sure this was not missed cardiac event but patient sure was symptoms are due to the beefy he had ate. Patient would like to be discharged and wants no further workup. Patient explained worrisome signs and informed to return to the ED immediately. Patient informed to follow up with municipal court judge. Patient's food impaction resolved. Differential Diagnosis Differential Diagnoses: The differential diagnosis associated with the presentation includes (Food bolus, food impaction, [place], GERD) Admission/Observation Consideration of admission/observation: Escalation of care including admission/observation considered Independent Historian Clinical information obtained from an independent historian. History obtained from or confirmed by: Other (Patient) Discharge Plan Discharge Clinical Impression: Esophageal stricture Patient Disposition: Home, Self-Care Instructions: Esophageal Stricture (ED), Food Impaction (ED) Additional Instructions: Your physical exam no longer indicates possibility of food bolus. You're speaking well and able to tolerate water and liquid without any vomiting or drooling. Return to the ED immediately for any chest pain, shortness of breath, inability to swallowing liquid or solid food, choking sensation, neck pain, abdominal pain, or any other concerning symptoms. Recommend follow up with primary care provider and municipal court judge. Prescriptions: No Action oxycodone 5 mg tablet 5 mg PO Q8H PRN (Reason: pain (scale score 7-10)) Qty: 9 0RF Rx Instructions: Partial Fill upon patient request. (DME) marquise [facility] See Rx Instructions .Route Qty: 1 0RF Rx Instructions: As directed Referrals: [facility] [place] [facility] [Provider Group, Gastroenterology] - 3 days Referral Note: Resolved food impaction food bolus Clinical Impression: Esophageal stricture Jl Matthews PA [Primary Care Provider, Emergency Medicine] - 3 days Referral Note: Resolved food impaction Clinical Impression: Esophageal stricture Interventions: ED Discharge Assessment Last Done: 02/19/25 11:56 Discharge Date/Time: 02/19/25 11:59 Print Language: Banglades[place]
[2025-02-19 11:56] VITALS: BP 152/85; PULSE 86; RESP 18; TEMP 36.6; O2SAT 99
== END 2025-02-19 11:59 | disposition home or self-care (01) ==
PROVIDERS: Emergency Provider Emergency Medicine Emergency Medical Services; PCP Physician Assistant Medical
DX: K22.2 Esophageal obstruction (principal); R13.11 Dysphagia, oral phase
CPT/HCPCS: 99283; 99284